=== PATIENT | male | born 1950 | race Caucasian/White ===

== ENCOUNTER 2016-10-20 15:40 | Inpatient (IN) | payer MEDICARE, OTHER ==
[~2016-10-20] VITALS: Ht 165.1 cm; Wt 72.5 kg
[2016-10-20] MEDS ORDERED: TRAZ-147 PO (15:56)
[2016-10-20] MEDS ORDERED: DULO60CA44 PO (15:56)
[2016-10-20 16:07] LABS: GLUCOSE,POINT OF CARE 197 MG/DL (70-110)
[2016-10-20] MEDS ORDERED: CHARCOAL/SORBITOL 50 GM/240 ML SUSPENSION PO ONE (16:15)
[2016-10-20 16:29] LABS: BASOPHILS % (AUTO) 1.3 % (0.0-2.0); HEMOGLOBIN 14.1 g/dL (13.5-17.5); LYMPHOCYTES # (AUTO) 0.9 K/uL (1.0-4.8); LYMPHOCYTES % (AUTO) 14.5 % (22.0-44.0); MEAN CORPUSCULAR HEMOGLOBIN 28.2 pg (26.0-34.0); MEAN CORPUSCULAR HGB CONC 32.1 G/dL (31.0-37.0); MEAN CORPUSCULAR VOLUME 88 fL (80-100); MONOCYTES # (AUTO) 0.5 K/uL (0.1-1.0); MONOCYTES % (AUTO) 7.5 % (2.0-9.0); NEUTROPHILS # (AUTO) 4.7 K/uL (1.8-7.7); NEUTROPHILS % (AUTO) 75.7 % (40.0-70.0); PLATELET COUNT (AUTO) 178 K/uL (150-450); RED CELL DISTRIBUTION WIDTH 15.4 % (11.5-14.5); WHITE BLOOD COUNT (AUTO) 6.3 K/uL (4.5-11.0)
[2016-10-20 16:40] LABS: ANION GAP 12 mmol/L (8-16); CALCIUM, TOTAL 9.2 mg/dL (8.8-10.5); CARBON DIOXIDE 25 mmol/L (22-29); CHLORIDE 105 mmol/L (98-107); CREATININE 0.92 mg/dL (0.60-1.30); GLOMERULAR FILTR. RATE CALC > 60 mL/min (>60); POTASSIUM 3.7 mmol/L (3.5-5.1); SODIUM SERUM 142 mmol/L (136-145); UREA NITROGEN, BLOOD 11 mg/dL (7-18)
[2016-10-20 16:41] LABS: SALICYLATE < 2.8 mg/dL (2.8-20.0)
[2016-10-20 16:46] LABS: ALANINE AMINOTRANSFERASE 30 U/L (12-78); ALBUMIN 3.8 g/dL (3.4-5.0); ASPARTATE AMINOTRANSFERASE 22 U/L (15-37); BILIRUBIN,TOTAL 0.6 mg/dL (0.1-1.0)
[2016-10-20 16:53] LABS: APPEARANCE,URINE CLEAR (CLEAR); GLUCOSE, URINE (UA) NEGATIVE (NEGATIVE); KETONES,URINE NEGATIVE (NEGATIVE); LEUKOCYTE ESTERASE ,URINE NEGATIVE (NEGATIVE); OCCULT BLOOD,URINE NEGATIVE (NEGATIVE); PH,URINE 6.5 (5.0-8.0); PROTEIN,URINE NEGATIVE (NEGATIVE)
[2016-10-20 17:04] LABS: RBC,URINE None Seen /HPF (0-2)
[2016-10-20 17:05] LABS: WBC,URINE 0-2 /HPF (0-5)
[2016-10-20 17:25] LABS: ACETAMINOPHEN < 2 mcg/mL (10-30)
[2016-10-20 19:58] LABS: SALICYLATE < 2.8 mg/dL (2.8-20.0)
[2016-10-20 20:57] LABS: ACETAMINOPHEN < 2 mcg/mL (10-30)
[2016-10-21] MEDS ORDERED: LORazepam 2 MG TABLET PO PRN ×2 (02:15→02:45)
[2016-10-21] MEDS ORDERED: HALOPERIDOL 5 MG TABLET PO PRN ×2 (02:15→02:45)
[2016-10-21] MEDS ORDERED: ZOLPIDEM TARTRATE 10 MG TABLET PO PRN (02:15)
[2016-10-21 02:45] VITALS: BP 140/77
[2016-10-21] MEDS ORDERED: PNEUMOCOCCAL VACCINE POLYVALENT 0.5 ML VIAL [PPSV23] IM ONE (05:00)
[2016-10-21] MEDS ORDERED: INFLUENZA VIRUS VACCINE QVS 2016-17 (3YR+)/PF 60 MCG/0.5 ML SYRINGE IM ONE (05:00)
[2016-10-21 08:05] VITALS: BP 127/86
[2016-10-21] MEDS ORDERED: DEXTROSE 50%-WATER 25 GM/50 ML SYRINGE IVP PRN (15:00)
[2016-10-21] MEDS ORDERED: PARoxetine HCL 20 MG TABLET PO SCH (15:00)
[2016-10-21] MEDS ORDERED: INSULIN ASPART 100 UNITS/ML SQ PRN (15:00)
[2016-10-21 16:25] VITALS: BP 145/77
[2016-10-21 16:42] LABS: GLUCOSE,POINT OF CARE 168 MG/DL (70-110)
[2016-10-21] MEDS: PANTOPRAZOLE SODIUM 40 MG DR TABLET PO SCH (16:43)
[2016-10-21] MEDS: TACROLIMUS ANHYDROUS 0.5 MG CAPSULE PO SCH (16:44)
[2016-10-21] MEDS: INSULIN GLARGINE,HUM.REC.ANLOG 100 UNITS/ML SQ SCH (17:45)
[2016-10-22] MEDS ORDERED: MAG HYDROX/AL HYDROX/SIMETH 30 ML SUSP UDCUP PO PRN (01:00)
[2016-10-22 06:02] LABS: GLUCOSE,POINT OF CARE 149 MG/DL (70-110)
[2016-10-22] MEDS: LEVOTHYROXINE SODIUM 100 MCG TABLET PO SCH ×2 (06:59→07:00)
[2016-10-22] MEDS: TACROLIMUS ANHYDROUS 0.5 MG CAPSULE PO SCH ×2 (09:00→18:33)
[2016-10-22] MEDS: ARIPiprazole 5 MG TABLET PO SCH (09:00)
[2016-10-22] MEDS: PANTOPRAZOLE SODIUM 40 MG DR TABLET PO SCH (09:00)
[2016-10-22] MEDS: INSULIN GLARGINE,HUM.REC.ANLOG 100 UNITS/ML SQ SCH ×2 (09:00→17:00)
[2016-10-22 16:37] VITALS: BP 138/87
[2016-10-22] MEDS ORDERED: PARoxetine HCL 20 MG TABLET PO SCH (21:00)
[2016-10-23 05:00] VITALS: BP 131/78
[2016-10-23] MEDS: LEVOTHYROXINE SODIUM 100 MCG TABLET PO SCH (05:04)
[2016-10-23 05:27] LABS: GLUCOSE,POINT OF CARE 119 MG/DL (70-110)
[2016-10-23] MEDS: TACROLIMUS ANHYDROUS 0.5 MG CAPSULE PO SCH (08:04)
[2016-10-23] MEDS: ARIPiprazole 5 MG TABLET PO SCH (08:04)
[2016-10-23] MEDS: PANTOPRAZOLE SODIUM 40 MG DR TABLET PO SCH (08:04)
[2016-10-23 08:05] VITALS: BP 112/72
[2016-10-23] MEDS: INSULIN GLARGINE,HUM.REC.ANLOG 100 UNITS/ML SQ SCH (09:00)
[2016-10-23] MEDS ORDERED: ARIP5TAB9 PO (09:36)
[2016-10-23] MEDS ORDERED: PARO20TA24 PO (09:37)
[2016-10-23] MEDS ORDERED: INSLAN SQ (09:38)
[2016-10-23] MEDS ORDERED: LEVO100 PO (09:39)
[2016-10-23] MEDS ORDERED: PANT40TA25 PO (09:39)
[2016-10-23] MEDS ORDERED: TACR.5 PO (09:39)
[2016-10-23 11:26] LABS: GLUCOSE,POINT OF CARE 163 MG/DL (70-110)
== END 2016-10-23 12:15 | disposition home or self-care (01) | DRG 885 ==
LOC: EMS 15:41 → 3EI 10-21 02:42 → 3EX 10-21 03:32
PROVIDERS: ADMIT Psychiatry & Neurology Psychiatry; ATTEND Psychiatry & Neurology Psychiatry
DX: F33.2 Major depressive disorder, recurrent severe without psychotic features (principal); Z94.4 Liver transplant status; E03.9 Hypothyroidism, unspecified; E11.65 Type 2 diabetes mellitus with hyperglycemia; F12.90 Cannabis use, unspecified, uncomplicated; I10 Essential (primary) hypertension; I25.10 Atherosclerotic heart disease of native coronary artery without angina pectoris; I70.0 Atherosclerosis of aorta; K21.9 Gastro-esophageal reflux disease without esophagitis; K22.70 Barrett's esophagus without dysplasia; Z62.819 Personal history of unspecified abuse in childhood; M19.90 Unspecified osteoarthritis, unspecified site; F41.9 Anxiety disorder, unspecified; S00.10XA Contusion of unspecified eyelid and periocular area, initial encounter; T43.212A Poisoning by selective serotonin and norepinephrine reuptake inhibitors, intentional self-harm, initial encounter; B19.20 Unspecified viral hepatitis C without hepatic coma; Y04.0XXA Assault by unarmed brawl or fight, initial encounter; Z85.05 Personal history of malignant neoplasm of liver; Z87.891 Personal history of nicotine dependence; Z86.14 Personal history of Methicillin resistant Staphylococcus aureus infection; Z28.21 Immunization not carried out because of patient refusal; Y93.89 Activity, other specified; Y92.89 Other specified places as the place of occurrence of the external cause; Y99.8 Other external cause status
CPT/HCPCS: 82962; 93005; 99285; G0480; G0481; J1815

== ENCOUNTER 2016-11-04 09:14 | Emergency (ER) | payer MEDICARE ==
[~2016-11-04] VITALS: Ht 165.1 cm; Wt 72.5 kg
[~2016-11-04 09:14] MED LIST: ARIP5TAB9 PO; DULO60CA44 PO; INSLAN SQ; LEVO100 PO; PANT40TA25 PO; PARO20TA24 PO; TACR.5 PO; TRAZ-147 PO
[2016-11-04 09:37] LABS: GLUCOSE,POINT OF CARE 179 MG/DL (70-110)
[2016-11-04] MEDS ORDERED: 0.9% SODIUM CHLORIDE 5 ML NEB SOLUTION NEB ONE (09:43)
[2016-11-04] MEDS ORDERED: IPRATROPIUM BROMIDE 0.5 MG/2.5 ML NEB SOLUTION NEB ONE (09:45)
[2016-11-04] MEDS ORDERED: ALBUTEROL SULFATE 2.5 MG/0.5 ML NEB SOLUTION NEB ONE (09:45)
[2016-11-04 11:35] LABS: EOSINOPHILS % (AUTO) 0 % (1.0-6.0); HEMATOCRIT 42.9 % (41-53); HEMOGLOBIN 13.9 g/dL (13.5-17.5); LYMPHOCYTES # (AUTO) 0.8 K/uL (1.0-4.8); LYMPHOCYTES % (AUTO) 5.5 % (22.0-44.0); MEAN CORPUSCULAR HEMOGLOBIN 28.3 pg (26.0-34.0); MEAN CORPUSCULAR HGB CONC 32.3 G/dL (31.0-37.0); MEAN CORPUSCULAR VOLUME 87 fL (80-100); MONOCYTES % (AUTO) 6.9 % (2.0-9.0); NEUTROPHILS # (AUTO) 12.5 K/uL (1.8-7.7); PLATELET COUNT (AUTO) 186 K/uL (150-450); RED BLOOD CELL COUNT(AUTO) 4.91 MIL/uL (4.50-5.90); RED CELL DISTRIBUTION WIDTH 16.4 % (11.5-14.5); WHITE BLOOD COUNT (AUTO) 14.2 K/uL (4.5-11.0)
[2016-11-04 11:43] LABS: ANION GAP 13 mmol/L (8-16); CALCIUM, TOTAL 8.9 mg/dL (8.8-10.5); CARBON DIOXIDE 22 mmol/L (22-29); CHLORIDE 102 mmol/L (98-107); GLOMERULAR FILTR. RATE CALC > 60 mL/min (>60); POTASSIUM 3.6 mmol/L (3.5-5.1); SODIUM SERUM 137 mmol/L (136-145); UREA NITROGEN, BLOOD 13 mg/dL (7-18)
[2016-11-04 11:49] LABS: ALANINE AMINOTRANSFERASE 25 U/L (12-78); ALBUMIN 3.6 g/dL (3.4-5.0); ASPARTATE AMINOTRANSFERASE 23 U/L (15-37); BILIRUBIN,TOTAL 1.2 mg/dL (0.1-1.0)
[2016-11-04 11:57] LABS: NEUTROPHILS % (AUTO) 87.6 % (40.0-70.0); RBC MORPHOLOGY COMMENT NORMAL RBC MORPH
[2016-11-04 12:42] LABS: B-TYPE NATRIURETIC PEPTIDE 88 pg/mL (0-100)
[2016-11-04 12:43] LABS: INFLUENZA TYPE B NEGATIVE FOR TYPE B (NEGATIVE)
[2016-11-04 12:58] VITALS: BP 154/68
== END 2016-11-04 13:01 | disposition home or self-care (01) ==
LOC: EMS 09:15
DX: J40 Bronchitis, not specified as acute or chronic (principal); E11.9 Type 2 diabetes mellitus without complications; I10 Essential (primary) hypertension; K21.9 Gastro-esophageal reflux disease without esophagitis; Z79.4 Long term (current) use of insulin; Z87.891 Personal history of nicotine dependence
CPT/HCPCS: 71020; 82962; 87804; 99285

== ENCOUNTER 2017-08-06 21:30 | Inpatient (IN) | payer MEDICARE ==
[~2017-08-06] VITALS: Ht 170.2 cm; Wt 79.4 kg
[~2017-08-06 21:30] MED LIST changes: +ARIP5TAB8 PO; -ARIP5TAB9 PO
[2017-08-06] MEDS ORDERED: HALOPERIDOL 5 MG TABLET PO PRN (22:00)
[2017-08-06] MEDS ORDERED: ZOLPIDEM TARTRATE 10 MG TABLET PO PRN (22:00)
[2017-08-06] MEDS ORDERED: LORazepam 2 MG TABLET PO PRN (22:00)
[2017-08-06 22:11] VITALS: BP 146/76
[2017-08-06] MEDS ORDERED: ASPI-989 PO (23:26)
[2017-08-06] MEDS ORDERED: INSLAN SQ (23:26)
[2017-08-06] MEDS ORDERED: ALFU10TA30 PO (23:26)
[2017-08-06] MEDS ORDERED: LISI-660 PO (23:26)
[2017-08-06] MEDS ORDERED: LEVO200 PO (23:26)
[2017-08-06] MEDS ORDERED: QUET25TA PO (23:26)
[2017-08-06] MEDS ORDERED: CALC215T PO (23:26)
[2017-08-07 00:07] VITALS: BP 149/76
[2017-08-07 00:32] LABS: GLUCOSE,POINT OF CARE 160 MG/DL (70-110)
[2017-08-07] MEDS ORDERED: GLUCAGON,HUMAN RECOMBINANT 1 MG VIAL IM PRN ×2 (01:00→12:00)
[2017-08-07 06:07] LABS: GLUCOSE,POINT OF CARE 115 MG/DL (70-110)
[2017-08-07] MEDS: LEVOTHYROXINE SODIUM 200 MCG TABLET PO SCH (06:38)
[2017-08-07 07:37] LABS: BASOPHILS # (AUTO) 0.06 K/uL (0.00-0.20); BASOPHILS % (AUTO) 1.1 % (0.0-2.0); EOSINOPHILS # (AUTO) 0.26 K/uL (0.00-0.70); EOSINOPHILS % (AUTO) 4.87 % (1.0-6.0); HEMATOCRIT 42.5 % (41-53); HEMOGLOBIN 13.9 g/dL (13.5-17.5); LYMPHOCYTES # (AUTO) 1.2 K/uL (1.0-4.8); LYMPHOCYTES % (AUTO) 22.4 % (22.0-44.0); MEAN CORPUSCULAR HEMOGLOBIN 28.5 pg (26.0-34.0); MEAN CORPUSCULAR HGB CONC 32.6 G/dL (31.0-37.0); MEAN CORPUSCULAR VOLUME 88 fL (80-100); MONOCYTES # (AUTO) 0.6 K/uL (0.1-1.0); MONOCYTES % (AUTO) 11.1 % (2.0-9.0); NEUTROPHILS # (AUTO) 3.3 K/uL (1.8-7.7); NEUTROPHILS % (AUTO) 60.6 % (40.0-70.0); PLATELET COUNT (AUTO) 170 K/uL (150-450); RED BLOOD CELL COUNT(AUTO) 4.86 MIL/uL (4.50-5.90); RED CELL DISTRIBUTION WIDTH 15.9 % (11.5-14.5); WHITE BLOOD COUNT (AUTO) 5.4 K/uL (4.5-11.0)
[2017-08-07 08:06] LABS: ALANINE AMINOTRANSFERASE 32 U/L (12-78); ALBUMIN 3.8 g/dL (3.4-5.0); ANION GAP 9 mmol/L (8-16); ASPARTATE AMINOTRANSFERASE 27 U/L (15-37); BILIRUBIN,TOTAL 0.6 mg/dL (0.1-1.0); CALCIUM, TOTAL 9.2 mg/dL (8.8-10.5); CARBON DIOXIDE 26 mmol/L (22-29); CHLORIDE 106 mmol/L (98-107); CREATININE 1.01 mg/dL (0.60-1.30); GLOMERULAR FILTR. RATE CALC > 60 mL/min (>60); POTASSIUM 4.6 mmol/L (3.5-5.1); SODIUM SERUM 141 mmol/L (136-145); TOTAL PROTEIN, SERUM 6.5 g/dL (6.4-8.2); UREA NITROGEN, BLOOD 10 mg/dL (7-18)
[2017-08-07 08:27] VITALS: BP 142/65
[2017-08-07] MEDS: LISINOPRIL 5 MG TABLET PO SCH (08:36)
[2017-08-07] MEDS: PANTOPRAZOLE SODIUM 40 MG DR TABLET PO SCH (08:36)
[2017-08-07] MEDS: ASPIRIN 325 MG TABLET PO SCH (08:36)
[2017-08-07] MEDS: TACROLIMUS ANHYDROUS 0.5 MG CAPSULE PO SCH ×2 (08:36→17:00)
[2017-08-07] MEDS: INSULIN ASPART 100 UNITS/ML SQ PRN (11:19)
[2017-08-07 11:23] LABS: GLUCOSE,POINT OF CARE 153 MG/DL (70-110)
[2017-08-07] MEDS ORDERED: QUEtiapine FUMARATE 200 MG TABLET PO PRN (11:30)
[2017-08-07] MEDS ORDERED: INSULIN ASPART 100 UNITS/ML SQ PRN (12:00)
[2017-08-07] MEDS ORDERED: IBUPROFEN 400 MG TABLET PO PRN (12:00)
[2017-08-07] MEDS ORDERED: ACETAMINOPHEN 325 MG TABLET PO PRN (12:00)
[2017-08-07] MEDS: CALCIUM CARBONATE 500 MG CHEWABLE TABLET CHEW SCH ×2 (12:40→17:00)
[2017-08-07 16:11] VITALS: BP 136/79
[2017-08-07] MEDS ORDERED: TACROLIMUS ANHYDROUS 0.5 MG CAPSULE PO SCH (17:00)
[2017-08-07] MEDS: INSULIN DETEMIR 100 UNITS/ML SQ SCH (21:00)
[2017-08-07] MEDS: QUEtiapine FUMARATE 200 MG TABLET PO SCH (21:00)
[2017-08-07 23:42] LABS: GLUCOSE,POINT OF CARE 134 MG/DL (70-110)
[2017-08-08 02:28] VITALS: BP 140/68
[2017-08-08 06:12] LABS: GLUCOSE COMMENT 1 Received Meds; GLUCOSE,POINT OF CARE 148 MG/DL (70-110)
[2017-08-08] MEDS ORDERED: LEVOTHYROXINE SODIUM 200 MCG TABLET PO SCH (06:30)
[2017-08-08] MEDS: LEVOTHYROXINE SODIUM 200 MCG TABLET PO SCH (06:35)
[2017-08-08] MEDS: INSULIN ASPART 100 UNITS/ML SQ PRN ×3 (06:38→20:23)
[2017-08-08] MEDS: ASPIRIN 325 MG TABLET PO SCH (08:24)
[2017-08-08] MEDS: PANTOPRAZOLE SODIUM 40 MG DR TABLET PO SCH (08:24)
[2017-08-08] MEDS: LISINOPRIL 5 MG TABLET PO SCH (08:24)
[2017-08-08] MEDS: CALCIUM CARBONATE 500 MG CHEWABLE TABLET CHEW SCH ×2 (08:25→16:58)
[2017-08-08] MEDS: ALFUZOSIN HCL 10 MG ER TABLET PO SCH (08:25)
[2017-08-08] MEDS: TACROLIMUS ANHYDROUS 0.5 MG CAPSULE PO SCH ×2 (08:25→16:58)
[2017-08-08 08:30] VITALS: BP 131/77
[2017-08-08] MEDS ORDERED: PANTOPRAZOLE SODIUM 40 MG DR TABLET PO SCH (09:00)
[2017-08-08] MEDS ORDERED: ASPIRIN 325 MG TABLET PO SCH (09:00)
[2017-08-08] MEDS ORDERED: LISINOPRIL 5 MG TABLET PO SCH (09:00)
[2017-08-08 11:52] LABS: GLUCOSE,POINT OF CARE 151 MG/DL (70-110)
[2017-08-08] MEDS ORDERED: QUET200T PO (13:25)
[2017-08-08] MEDS ORDERED: CALC500T7 PO (13:41)
[2017-08-08 16:03] VITALS: BP 129/69
[2017-08-08 17:52] LABS: GLUCOSE,POINT OF CARE 126 MG/DL (70-110)
[2017-08-08] MEDS ORDERED: MAG HYDROX/AL HYDROX/SIMETH ES 30 ML SUSPENSION UDCUP PO PRN (19:15)
[2017-08-08] MEDS: QUEtiapine FUMARATE 200 MG TABLET PO SCH (20:16)
[2017-08-08] MEDS: INSULIN DETEMIR 100 UNITS/ML SQ SCH (20:23)
[2017-08-08 21:07] LABS: GLUCOSE,POINT OF CARE 208 MG/DL (70-110)
[2017-08-09 01:10] VITALS: BP 124/72
[2017-08-09 06:14] LABS: GLUCOSE,POINT OF CARE 158 MG/DL (70-110)
[2017-08-09] MEDS: LEVOTHYROXINE SODIUM 200 MCG TABLET PO SCH (06:54)
[2017-08-09] MEDS: INSULIN ASPART 100 UNITS/ML SQ PRN (06:57)
[2017-08-09] MEDS: ASPIRIN 325 MG TABLET PO SCH (08:30)
[2017-08-09] MEDS: CALCIUM CARBONATE 500 MG CHEWABLE TABLET CHEW SCH (08:31)
[2017-08-09] MEDS: PANTOPRAZOLE SODIUM 40 MG DR TABLET PO SCH (08:31)
[2017-08-09] MEDS: LISINOPRIL 5 MG TABLET PO SCH (08:31)
[2017-08-09] MEDS: TACROLIMUS ANHYDROUS 0.5 MG CAPSULE PO SCH (08:31)
[2017-08-09] MEDS: ALFUZOSIN HCL 10 MG ER TABLET PO SCH (08:31)
[2017-08-09 08:37] VITALS: BP 129/67
[2017-08-09 08:38] LABS: HEMOGLOBIN A1C 6.8 % (4.5-6.2)
[2017-08-09 09:14] LABS: THYROID STIMULATING HORMONE 0.02 uIU/mL (0.36-3.74)
== END 2017-08-09 08:45 | disposition home or self-care (01) | DRG 881 ==
LOC: B2X 22:09 → EDSTATUS 22:12
PROVIDERS: ADMIT Psychiatry & Neurology Psychiatry; ATTEND Psychiatry & Neurology Psychiatry
DX: F32.9 Major depressive disorder, single episode, unspecified (principal); Z94.4 Liver transplant status; F25.9 Schizoaffective disorder, unspecified; F22 Delusional disorders; E11.9 Type 2 diabetes mellitus without complications; B18.2 Chronic viral hepatitis C; E03.9 Hypothyroidism, unspecified; F10.10 Alcohol abuse, uncomplicated; I10 Essential (primary) hypertension; I25.10 Atherosclerotic heart disease of native coronary artery without angina pectoris; K21.9 Gastro-esophageal reflux disease without esophagitis; K22.70 Barrett's esophagus without dysplasia; M19.90 Unspecified osteoarthritis, unspecified site
CPT/HCPCS: 82962; 83036; 84439; 84443